=== PATIENT | female | born 1965 | race Caucasian/White ===

== ENCOUNTER 2019-07-21 06:51 | Day surgery (SDC) | payer MEDICAID ==
[2019-07-18 12:44] LABS: BASOPHILS % (AUTO) 0.4 % (0-1); EOSINOPHILS # (AUTO) 0.6 X10'3 (0-0.9); EOSINOPHILS % (AUTO) 11.1 % (0-6); LYMPHOCYTES # (AUTO) 1.8 X10'3 (1.1-4.8); LYMPHOCYTES % (AUTO) 35.2 % (21-51); MEAN CORPUSCULAR HEMOGLOBIN 30.7 PG (27.0-31.0); MEAN CORPUSCULAR HGB CONC 33.6 g/dL (33.0-36.5); MEAN CORPUSCULAR VOLUME 91.5 FL (78-98); MEAN PLATELET VOLUME 7.9 FL (7.4-10.4); MONOCYTES # (AUTO) 0.4 X10'3 (0-0.9); MONOCYTES % (AUTO) 8.4 % (2-12); NEUTROPHILS # (AUTO) 2.3 X10'3 (1.8-7.7); NEUTROPHILS % (AUTO) 44.9 % (42-75); PRE OP HEMATOCRIT 41.1 % (35.0-45.0); PRE OP HEMOGLOBIN 13.8 g/dL (12.0-16.0); PRE OP PLATELET COUNT 223 X10'3 (140-440); RED BLOOD COUNT 4.49 X10'6 (4.20-5.60); RED CELL DISTRIBUTION WIDTH 13.3 % (11.5-14.5)
[2019-07-18 12:49] LABS: ALBUMIN 3.5 G/DL (3.4-5.0); ALBUMIN/GLOBULIN RATIO 0.9 (1.1-1.5); ALKALINE PHOSPHATASE 69 IU/L (46-116); BLOOD UREA NITROGEN 15 MG/DL (7-18); CALCIUM 8.6 MG/DL (8.5-10.1); CHLORIDE 108 MMOL/L (99-107); CREATININE 0.88 MG/DL (0.40-0.90); PRE OP ANION GAP 6 (8-16); PRE OP AST 53 U/L (10-37); PRE OP GLUCOSE 78 MG/DL (70-104); PRE OP POTASSIUM 4.4 MMOL/L (3.4-5.1); PRE OP SODIUM 143 MMOL/L (135-145); TOTAL PROTEIN 7.4 G/DL (6.4-8.2); eGFR 67 ML/MIN
[2019-07-18 12:52] LABS: PRE OP ALT 97 U/L (30-65)
[~2019-07-21] VITALS: Ht 160 cm; Wt 54.0 kg
[2019-07-21] VITALS (9 sets, daily range): BP systolic 98–107; BP diastolic 59–67
[~2019-07-21 06:51] MED LIST: ALBU90AE IH; CHOL10002 PO; FLUT1AER4 IH; MONT10TA24 PO; albuterol 2.5 MG/3 ML nebule NEB ONE; famotidine 20mg tablet PO ONE; ringers solution, lacted 1,000 ML IV SCH
[2019-07-21] MEDS ORDERED: ferric subsulfate solution/paste 1 APPLIC SOL.W.APPL TP ONE (06:54)
[2019-07-21] MEDS ORDERED: ceFOXitin 2 GM ADDvantage bag 100 ML IV ONE (07:00)
[2019-07-21] MEDS ORDERED: sevoflurane 250ml liquid IH ONE (09:11)
[2019-07-21] MEDS ORDERED: midazolam 2 mg/2 ml injection ONE (09:18)
[2019-07-21] MEDS ORDERED: fentaNYL/PF 50MCG/1 ML 2ML syringe ONE (09:18)
[2019-07-21] MEDS ORDERED: LIDOcaine 1% 30ml preserv. free vial ONE (09:41)
[2019-07-21] MEDS ORDERED: epiNEPHrine 1 mg/ml inj ONE (09:41)
[2019-07-21] MEDS ORDERED: ondansetron/PF 4mg/2ml inj ONE (09:45)
[2019-07-21] MEDS ORDERED: LIDOcaine 2% (20mg/ml) 5ml vial ONE (09:45)
[2019-07-21] MEDS ORDERED: dexamethasone sod phosphate 4mg/ml inj. ONE (09:45)
[2019-07-21] MEDS ORDERED: propofol inj 20 ML IV ONE (09:45)
[2019-07-21] MEDS ORDERED: ringers solution, lacted 1,000 ML IV SCH (09:49)
[2019-07-21] MEDS ORDERED: proCHLORperazine 10 MG/2 ml inj IV PRN (09:50)
[2019-07-21] MEDS ORDERED: morphine 4 MG/ML inj SYRINge IV PRN ×2 (09:50)
[2019-07-21] MEDS ORDERED: ondansetron/PF 4mg/2ml inj IV PRN (09:50)
[2019-07-21] MEDS ORDERED: meperidine/PF 25mg/ml syringe IV PRN ×3 (09:50)
--- NOTE | 2019-07-21 10:03 | NUR ---
Received from OR via [facility], accompanied by Anesthesiologist DR HUGHES and report given by Anesthesiologist. PT DROWSY, DENIES PAIN, BYRON PAD IN PLACE CDI. Addendum: 07/21/19 at 1029 by Jelly Lincoln RN Amended: Links added.
[2019-07-21] MEDS ORDERED: oxyCODONE/APAP 5-325mg tablet PO ONE (10:10)
--- NOTE | 2019-07-21 11:33 | NUR ---
PT UP TO BATHROOM FOR VOID X 2, D/C INSTRUCTIONS GIVEN AND GONE OVER W/PT AND PTS DAUGHTER, BOTH VERBALIZE UNDERSTANDING, D/CD TO HOME VIA W/C TO PRIVATE VEHICLE W/O INCIDENT. Addendum: 07/21/19 at 1157 by Jelly Lincoln RN Amended: Links added.
== END 2019-07-21 11:33 | disposition home or self-care (01) ==
LOC: PAS 06:51
PROVIDERS: ATTEND Obstetrics & Gynecology
DX: C53.0 Malignant neoplasm of endocervix (principal); Z88.1 Allergy status to other antibiotic agents; Z88.8 Allergy status to other drugs, medicaments and biological substances; F41.9 Anxiety disorder, unspecified; J44.9 Chronic obstructive pulmonary disease, unspecified; Z86.19 Personal history of other infectious and parasitic diseases; Z87.891 Personal history of nicotine dependence; Z86.14 Personal history of Methicillin resistant Staphylococcus aureus infection
CPT/HCPCS: 36415; 57520; 80053; 82948; 85025; 86885; 86900; 86901; 93005; 94640; 94760; J0171; J0694; J1100; J2001; J2175; J2250; J2405; J2704; J3010; J7120; A4618; A7000